=== PATIENT | male | born 1995 | race Caucasian/White ===

== ENCOUNTER 2022-04-04 06:33 | Outpatient (CLI) | payer BC, SELFPAY ==
--- NOTE | ~2022-04-04 | CT_ITS ---
EXAMINATION: CT abdomen pelvis wo/w con DATE: 04/04/2022 07:35 INDICATION: Blood in sperm TECHNIQUE: Computed tomography (CT) of the abdomen and pelvis was performed without and with 130 cc O mnipaque 350 intravenous contrast. The dose-length product was 642.81 mGy-cm. Automated exposure cont rol and iterative reconstruction technique were employed. Automated exposure control and iterative re construction technique were employed. COMPARISON: None. FINDINGS: Lung bases are unremarkable. No significant pleural or pericardial effusion. No renal stone s. The liver, spleen, pancreas, adrenal glands and kidneys are unremarkable. Gallbladder is present. Bladder is unremarkable. Nonobstructive bowel pattern. No free air or free fluid. No evidence for her susan. No abnormal pelvic masses or fluid collections. No significant vascular abnormality. No lymphade nopathy. IMPRESSION: 1. No findings to explain patient's symptoms. No acute abdominal abnormality. Reviewed, dictated and finalized at location B.
== END 2022-04-04 06:34 | disposition home or self-care (01) ==
PROVIDERS: Visit Provider Nurse Practitioner
DX: R36.1 Hematospermia (principal)
CPT/HCPCS: 74178; Q9967

== ENCOUNTER → 2023-06-01 12:29 | Outpatient (CLI) | payer BC, SELFPAY ==
--- NOTE | ~2023-06-01 | XR_ITS ---
EXAMINATION: XR_CERV2-3V_CR DATE: 06/01/2023 13:12 INDICATION: Neck pain. Headache. TECHNIQUE: 4 views of cervical spine including standing views were obtained. COMPARISON: None. FINDINGS: There is mild kyphosis of cervical spine. There is 4 degrees levocurvature of cervicothorac ic spine. Vertebral body heights are normal. There is mildly decreased disc height at C5-C6. The face t joints are unremarkable. No central canal stenosis or prevertebral soft tissue swelling. IMPRESSION: 1. Mild degenerative disc disease at C5-C6. Reviewed, dictated and finalized at location A. ULATOR
== END ==
DX: R51.9 Headache, unspecified (principal); M50.322 Other cervical disc degeneration at C5-C6 level
CPT/HCPCS: 72040

== ENCOUNTER 2023-08-14 07:35 | Outpatient (CLI) | payer BC, SELFPAY ==
--- NOTE | ~2023-08-14 | NM_ITS ---
EXAM: NM gastric emptying study DATE: 08/14/2023 13:24 INDICATION: Dumping syndrome TECHNIQUE: A gastric emptying study was performed using the methodology of Kvng ENGEL, et al. J Nucl Med 2007; 48:568-572. The patient was given a meal consisting of oatmeal labeled with 1.012 mCi Tc-9 9m sulfur colloid and approximately 120 mL of water. Simultaneous anterior and posterior 1-min images of the abdomen were obtained with the patient supine at multiple time points over a total period of 4 hours. The geometric mean of anterior and posterior views was determined, and the percentage retent ion was calculated for each time point. COMPARISON: None. FINDINGS: Gastric retention of the radiotracer-labeled meal was 11%, 1%, and 1% at the 1-hour, 2-hour, and 4-ho ur time points, respectively. With this technique, apparent rapid gastric emptying is suggested by <3 0% gastric retention at 1 hour. Delayed gastric emptying is defined by gastric retention of >90% at 1 hour, >60% retention at 2 hours, or >10% retention at 4 hours. IMPRESSION: 1. Rapid gastric emptying. Reviewed, dictated and finalized at location A. [employer] IMPRESSION: 1. Rapid gastric emptying.
== END 2023-08-14 07:36 | disposition home or self-care (01) ==
PROVIDERS: Visit Provider Emergency Medicine
DX: K91.1 Postgastric surgery syndromes (principal)
CPT/HCPCS: 78264; A9541

== ENCOUNTER 2023-09-17 07:46 | Outpatient (CLI) | payer BC, SELFPAY ==
--- NOTE | ~2023-09-17 | US_ITS ---
EXAMINATION: US renal BI DATE: 09/17/2023 08:15 INDICATION: Left lower quadrant abdominal pain. TECHNIQUE: Multiple ultrasound grayscale images of the kidneys were obtained. COMPARISON: CT abdomen and pelvis 04/04/2022 FINDINGS: The right kidney measures 10.5 x 5.9 x 6.6 cm. The left kidney measures 10.1 x 5.0 x 5.9 cm. The kidn eys demonstrate normal parenchymal echogenicity. There is no hydronephrosis. The bladder is normal. IMPRESSION: 1. Normal kidneys. No hydronephrosis. Reviewed, dictated and finalized at location A.
== END 2023-09-17 07:47 ==
LOC: MICIMG 07:47
PROVIDERS: PCP Emergency Medicine; Visit Provider Emergency Medicine
DX: R10.32 Left lower quadrant pain (principal)
CPT/HCPCS: 76775

== ENCOUNTER 2023-09-23 08:22 | Outpatient (CLI) | payer BC, SELFPAY ==
--- NOTE | ~2023-09-23 | XR_ITS ---
EXAMINATION: XR UGIAC w small bowel DATE: 09/23/2023 11:13 INDICATION: 6 months of feeling unwell and tired after eating TECHNIQUE: The patient drank thick barium, gas-producing crystals, and thin barium. Conventional supi ne abdomen radiographs and fluoroscopic spot radiographs of the esophagus, stomach, and proximal smal l bowel were obtained. Additional overhead radiographs were obtained during the transit through the s mall bowel. Spot fluoroscopic images of the small bowel were obtained upon contrast reaching the cec um. Fluoroscopy exposure time was 1.8 minutes. A total of 7 overhead radiographs and 556 fluoroscopic images were recorded. Total DAP was 21.589 Gycm^2 COMPARISON: None. FINDINGS: The esophagus is normal without mass or stricture. Esophageal motility is normal. There is no hiatal hernia. There was no gastroesophageal reflux with provocative maneuvers. The stomach and proximal sma ll bowel are normal. Transit time from the stomach to proximal colon was approximately 90 minutes. There is normal caliber and mucosal fold pattern throughout the small bowel. Terminal ileum is normal. No tethering or abn ormal mass effect observed upon the small bowel with real-time fluoroscopy. IMPRESSION: 1. Normal upper GI and small bowel follow-through study. Reviewed, dictated and finalized at location A.
== END 2023-09-23 08:23 | disposition home or self-care (01) ==
PROVIDERS: PCP Emergency Medicine; Visit Provider Internal Medicine Gastroenterology
DX: K31.89 Other diseases of stomach and duodenum (principal)
CPT/HCPCS: 74246; 74248

== ENCOUNTER 2023-10-21 00:12 | Day surgery (SDC) | payer BC, SELFPAY ==
[2023-10-06 12:28] VITALS: BMI 21.9
[2023-10-21 10:31] VITALS: BP 115/80; PULSE 70; RESP 20; TEMP 36.6; O2SAT 100; BMI 21.9
[2023-10-21] MEDS: LACTATED RINGERS 1,000 ML 150 ML IV CONT (10:34)
--- NOTE | 2023-10-21 10:46 | P.PNAN_ITS ---
Anes - Initial Pre Proc Eval Procedure: Operation Date: 10/21/23 11:30 Proposed Procedures p Esophagogastroduodenoscopy - Rodrigo Tatum MD Date/Time: 10/21/23 10:46 Surgeon: Rodrigo Tatum MD Pre Op Diagnosis: Other diseases of stomach and duodenum Patient Data Age: 27 Gender: M Height: 1.91 m Weight: 79.5 kg Last Vital Signs Temp 97.8 F 10/21/23 10:31 Pulse 70 10/21/23 10:31 Resp 20 10/21/23 10:31 BP 115/80 10/21/23 10:31 Pulse Ox 100 10/21/23 10:31 O2 Del Method Room Air 10/21/23 10:31 Allergies Allergy/AdvReac Type Severity Reaction Status Date / Time Penicillins Allergy Mild Unknown Verified 10/21/23 10:30 eggs Allergy Mild Rash Uncoded 10/21/23 10:30 Home Medications Medication Instructions Recorded Confirmed Type flash glucose sensor (FreeStyle 09/08/23 History Laverne 2 Sensor kit) Patient hx anesthesia problems: none Family hx anesthesia problems: none Results Review: All pre-operative results and documents have been reviewed as part of the pre- operative evaluation. [facility] Past Medical History Medical History (Updated 09/17/23 @ 10:33 by Rodrigo Tatum MD) Allergies Nonsurgical dumping syndrome Family History Family History Father Diabetes mellitus Mother Thyroid disorder Social History Social History Smoking status: Current every day smoker Tobacco type: e-cigarettes/vaping Alcohol intake: never Substance use: former Substance use type: marijuana Living arrangements: other Spiritual care concerns: No Anes - Eval Final PreProcedure Day of Procedure 10/21/23 10:46 Patient weight: normal Heart: regular rate and rhythm Lungs: clear to auscultation Airway: Mallampati scale class II Neurological: alert and oriented Last oral intake: >/= 8 hours ASA classification: II Emergent: no Anesthetic plan: proceed Anesthesia type and monitoring: general GIVS and standard monitoring Results Review: All pre-operative results and documents have been reviewed as part of the pre- operative evaluation. Informed Consent: The patient's anesthetic plan and its attendant risks and benefits were discus sed with the patient/family/POA. Questions were solicited and answers provided to the satisfaction of the patient/family/POA.
--- NOTE | 2023-10-21 10:56 | PM.HPGS ---
History of Present Illness History of Present Illness Consent: Risks, benefits, and alternatives have been discussed and questions answered. Patient agrees to proceed with procedure. Chief complaint: Other diseases of stomach and duodenum Narrative: Mehul Gonzalez is a 27 year old male with bloating and ? dumping sd, never had egd. SBFT normal, stool elastase normal Review of Systems Review of Systems: All systems reviewed & are unremarkable except as noted in HPI and below PMFSH Past Medical History Medical History (Updated 10/21/23 @ 10:57 by Rodrigo Tatum MD) Allergies Bloating Nonsurgical dumping syndrome Family History Family History Father Diabetes mellitus Mother Thyroid disorder Social History Social History Smoking status: Current every day smoker Tobacco type: e-cigarettes/vaping Alcohol intake: never Substance use: former Substance use type: marijuana Living arrangements: other Spiritual care concerns: No Meds Home Medications and Allergies Home Medications Medication Instructions Recorded Confirmed Type flash glucose sensor (FreeStyle 09/08/23 History Laverne 2 Sensor kit) Allergies Allergy/AdvReac Type Severity Reaction Status Date / Time Penicillins Allergy Mild Unknown Verified 10/21/23 10:30 eggs Allergy Mild Rash Uncoded 10/21/23 10:30 Vital Signs Vital Signs - 24 hr 10/21/23 10:31 Temperature 97.8 F Pulse Rate 70 Respiratory Rate 20 Blood Pressure 115/80 Pulse Oximetry 100 Oxygen Delivery Room Air Exam Const: General: comfortable and no acute distress HENMT: Face/Nose/Sinus: Normal nares present Eyes: General: appearance normal, both eyes and all related structures Neck: Neck: no JVD Resp: Auscultation: clear to auscultation bilaterally Cardio: Rate: regular rate Rhythm: regular rhythm GI: Inspection: non-distended GI Palp: Yes Soft to palpation Skin: General skin exam: normal color Neuro: General: gait normal Speech: normal speech Extrem: General: normal to inspection Psych: Mental Status: mental status grossly normal Assessment and Plan Assessment and plan (1) Nonsurgical dumping syndrome: Code(s): K31.89 - Other diseases of stomach and duodenum Status: Acute (2) Bloating: Code(s): R14.0 - Abdominal distension (gaseous) Status: Acute Assessment and Plan: egd with bx
[2023-10-21 11:06] VITALS: BP 92/66; PULSE 74; RESP 19; O2SAT 98
[2023-10-21 11:16] VITALS: BP 92/65; PULSE 73; RESP 18; O2SAT 98
[2023-10-21 11:26] VITALS: BP 101/68; PULSE 63; RESP 20; O2SAT 98
== END 2023-10-21 11:31 | disposition home or self-care (01) ==
PROVIDERS: PCP Emergency Medicine; Visit Provider Internal Medicine Gastroenterology
PROC: 0DJ08ZZ Inspection of Upper Intestinal Tract, Via Natural or Artificial Opening Endoscopic (ICD-10-PCS; CPT 43235; principal; 2023-10-21 11:30)
DX: K29.50 Unspecified chronic gastritis without bleeding (principal); K31.89 Other diseases of stomach and duodenum; R14.0 Abdominal distension (gaseous); F17.290 Nicotine dependence, other tobacco product, uncomplicated
CPT/HCPCS: 43239; 88305; J2704; J7120

== ENCOUNTER 2024-03-23 07:13 | Emergency (ER) | payer BC, SELFPAY ==
--- NOTE | ~2024-03-23 | XR_ITS ---
Cervical Spine: AP, lateral, open-mouth views Clinical History: Pain Findings: There is straightening of the normal cervical lordosis. The vertebral bodies and posterior elements appear intact. The intervertebral disc spaces are well maintained. Pre-vertebral soft tiss ues are unremarkable. Impression: Straightening of the normal cervical lordosis, otherwise unremarkable exam. Reviewed, dictated and finalized at location . Impression: Straightening of the normal cervical lordosis, otherwise unremarkable exam.
[2024-03-23 07:20] VITALS: BP 118/70; O2SAT 100
[2024-03-23 07:22] VITALS: BP 116/68; PULSE 70; RESP 16; TEMP 36.7; O2SAT 100
[2024-03-23 07:31] VITALS: BP 124/83; O2SAT 100
[2024-03-23 10:26] VITALS: BP 131/75; PULSE 69; RESP 18; O2SAT 100
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
[2024-03-23 10:49] VITALS: BP 120/69; PULSE 73; RESP 20; TEMP 36.4; O2SAT 100
== END 2024-03-23 10:51 | disposition home or self-care (01) ==
PROVIDERS: Emergency Provider Emergency Medicine; PCP Emergency Medicine
DX: S16.1XXA Strain of muscle, fascia and tendon at neck level, initial encounter (principal); F17.290 Nicotine dependence, other tobacco product, uncomplicated; V43.52XA Car driver injured in collision with other type car in traffic accident, initial encounter
CPT/HCPCS: 72040; 96372; 99283